=== PATIENT | male | born 1955 | race Caucasian/White ===

== ENCOUNTER 2019-11-20 00:17 | Outpatient (CLI) | payer BC, SELFPAY ==
[2019-11-20 20:58] LABS: SARS-CoV-2 RNA PCR Negative
== END 2019-11-20 00:18 | disposition home or self-care (01) ==
LOC: ANHCOVIDDT 00:17
PROVIDERS: PCP Family Medicine; Visit Provider Internal Medicine Gastroenterology
DX: Z01.818 Encounter for other preprocedural examination (principal); Z11.59 Encounter for screening for other viral diseases
CPT/HCPCS: 87635; C9803; U0003

== ENCOUNTER 2019-11-23 01:17 | Day surgery (SDC) | payer BC, SELFPAY ==
[2019-11-17 10:29] VITALS: BMI 27.1
[2019-11-23 06:44] VITALS: BP 105/84; PULSE 66; RESP 20; TEMP 36.7; O2SAT 99
[2019-11-23] MEDS: LACTATED RINGERS 1,000 ML 150 ML IV CONT (06:59)
--- NOTE | 2019-11-23 07:55 | WPDANESEPPF ---
Anes - Initial Pre Proc Eval Procedure: Operation Date: 11/23/19 08:00 Proposed Procedures p Screening Colonoscopy - Maximiliano Gomez MD Date/Time: 11/23/19 07:55 Surgeon: Maximiliano Gomez MD Pre Op Diagnosis: Neoplasm Screening Patient Data Age: 64 Gender: M Height: 1.65 m Weight: 73.9 kg Last Vital Signs Temp 36.7 C 11/23/19 06:44 Pulse 66 11/23/19 06:44 Resp 20 11/23/19 06:44 BP 105/84 11/23/19 06:44 Pulse Ox 99 11/23/19 06:44 Allergies Allergy/AdvReac Type Severity Reaction Status Date / Time No Known Allergies Allergy Unverified 11/17/19 10:27 Home Medications Medication Instructions Recorded Confirmed Type calcium polycarbophil [Fiber-Tabs] 650 mg PO DAILY 11/17/19 11/17/19 History magnesium oxide 400 mg PO DAILY 11/17/19 11/17/19 History metronidazole 500 mg PO Q8H 11/17/19 11/17/19 History multivitamin [Daily Multi-Vitamin] 1 tablet PO DAILY 11/17/19 11/17/19 History Patient hx anesthesia problems: none Family hx anesthesia problems: none [facility] Family History Family History (Updated 04/09/17 @ 06:52 by DOCTOR UNKNOWN) Father Family history of arthritis Family history of osteoarthritis Mother Family history of throat cancer Family history of chronic obstructive pulmonary disease, Onset Age: 79 Social History Social History Smoking status: Never smoker Alcohol intake: current Anes - Eval Final PreProcedure Day of Procedure 11/23/19 07:55 Patient weight: overweight Heart: regular rate and rhythm Lungs: clear to auscultation and normal air movement Airway: Mallampati scale class II Neurological: alert and oriented Last oral intake: >/= 8 hours ASA classification: II Emergent: no Anesthetic plan: proceed Anesthesia type and monitoring: general GIVS Informed Consent: The patient's anesthetic plan and its attendant risks and benefits were discussed with the patient/family/POA. Questions were solicited and answers provided to the satisfaction of the patient/family/POA.
--- NOTE | 2019-11-23 07:58 | WPDGICN ---
Assessment and Plan Assessment and plan (1) Encounter for screening for colorectal malignant neoplasm: Code(s): Z12.11 - Encounter for screening for malignant neoplasm of colon; Z12.12 - Encounter for screening for malignant neoplasm of rectum Status: Acute Assessment and Plan: Patient presents for screening colonoscopy is been 12 years since last exam. Plan is for high-fiber diet because of vague abdominal discomfort. Further recommendations will be given after colonoscopy. GI Consult Note Consult date/time: 11/23/19 07:58 HPI: Simone Joseph is a 64 year old male seen in evaluation at the request of Dr Sarwat Schmitt. Patient reports for a screening colonoscopy. His current weight appetite bowel movements are normal. He notes over recent months has had a vague lower abdominal discomfort. This poorly described. Apparently it is constantly present. Not related to bowel habits. He does report having prior colonoscopy 12 years ago. Patient states only infrequently will restrain is stools. He denies any blood in his stools. His family history is noncontributory. Review of Systems Review of Systems: All systems reviewed & are unremarkable except as noted in HPI and below PMFSH Family History Family History Father Family history of arthritis Family history of osteoarthritis Mother Family history of throat cancer Family history of chronic obstructive pulmonary disease, Onset Age: 79 Social History Social History Smoking status: Never smoker Alcohol intake: current Meds Home Medications and Allergies Home Medications Medication Instructions Recorded Confirmed Type calcium polycarbophil [Fiber-Tabs] 650 mg PO DAILY 11/17/19 11/17/19 History magnesium oxide 400 mg PO DAILY 11/17/19 11/17/19 History metronidazole 500 mg PO Q8H 11/17/19 11/17/19 History multivitamin [Daily Multi-Vitamin] 1 tablet PO DAILY 11/17/19 11/17/19 History Allergies Allergy/AdvReac Type Severity Reaction Status Date / Time No Known Allergies Allergy Unverified 11/17/19 10:27 Vital Signs Vital Signs - 24 hr 11/23/19 06:44 Temperature 36.7 C Pulse Rate 66 Respiratory Rate 20 Blood Pressure 105/84 Pulse Oximetry 99 Exam Narrative: Exam Narrative: Physical exam reveals patient to be alert. Vital signs stable. HEENT exam unremarkable. Lungs are clear to auscultation and percussion. Heart is without murmur or extra sounds. Abdominal exam bowel sounds are present soft nontender with no hepatosplenomegaly. Digital external rectal exam normal.
[2019-11-23 08:24] VITALS: BP 92/44; PULSE 63; RESP 18; O2SAT 97
[2019-11-23 08:34] VITALS: BP 86/47; PULSE 69; RESP 22; O2SAT 98
[2019-11-23 08:44] VITALS: BP 95/51; PULSE 57; RESP 14; O2SAT 97
[2019-11-23 08:54] VITALS: BP 119/74; PULSE 61; RESP 17; O2SAT 97
--- NOTE | 2019-11-23 09:22 | SUR.PHASEII ---
0915 REVIEWED DISCHARGE INSTRUCTIONS WITH PATIENT'S . INSTRUCTED TO GET CAT SCAN SCHEDULED AND TO CALL DR. RUDOLPH'S OFFICE TO SCHEDULE RECTAL ULTRASOUND AND BIOPSY AT [facility] AND IF THEY HAVE ANY QUESTIONS. Jay PIKE RN.
== END 2019-11-23 09:15 | disposition home or self-care (01) ==
PROVIDERS: PCP Family Medicine; Visit Provider Internal Medicine Gastroenterology
PROC: 0DJD8ZZ Inspection of Lower Intestinal Tract, Via Natural or Artificial Opening Endoscopic (ICD-10-PCS; CPT 45378; principal; 2019-11-23 08:00)
DX: Z12.11 Encounter for screening for malignant neoplasm of colon (principal); K62.89 Other specified diseases of anus and rectum; K64.8 Other hemorrhoids
CPT/HCPCS: G0121; J2704; J7120

== ENCOUNTER 2019-12-03 07:04 | Outpatient (CLI) | payer BC, SELFPAY ==
--- NOTE | ~2019-12-03 | CT_ITS ---
EXAMINATION: CT abdomen pelvis w con DATE: 12/03/2019 07:35 INDICATION: Low abdominal pain. Rectal lesion. TECHNIQUE: Computed tomography (CT) of the abdomen and pelvis was performed with 100 mL Omnipaque 350 intravenous contrast. Automated exposure control and iterative reconstruction technique were employe d. The dose-length product was 347.59 mGy-cm. COMPARISON: None. FINDINGS: The visualized portions of the lung bases demonstrate minimal atelectasis. No pleural effus ion. The heart size is normal. No pericardial effusion. Calcifications in the liver and spleen are co nsistent with old granulomatous disease. The gallbladder, pancreas, adrenal glands, and right kidney are normal. There is a 3 mm stone in left kidney. There is a left inguinal hernia containing fat. The prostate is mildly enlarged. There are no dilated loops of bowel. The appendix measures 9 mm in diam eter. There is no surrounding fat stranding. There are no pathologically enlarged lymph nodes. There is no free intraperitoneal fluid. There is mild thoracolumbar spondylosis. IMPRESSION: 1. Above-average appendiceal diameter, but no surrounding inflammation to suggest acute appendicitis. Correlate with physical exam. 2. Left inguinal hernia containing fat. Reviewed, dictated and finalized at location A. IMPRESSION: 1. Above-average appendiceal diameter, but no surrounding inflammation to sugge st acute appendicitis. Correlate with physical exam. 2. Left inguinal hernia containing fat.
[2019-12-03 07:24] LABS: Estimated Glomerular Filt Rate > 60
== END 2019-12-03 07:05 | disposition home or self-care (01) ==
PROVIDERS: PCP Family Medicine; Visit Provider Internal Medicine Gastroenterology
DX: K62.9 Disease of anus and rectum, unspecified (principal); R10.30 Lower abdominal pain, unspecified; K40.90 Unilateral inguinal hernia, without obstruction or gangrene, not specified as recurrent
CPT/HCPCS: 36415; 74177; Q9967